=== PATIENT | female | born 1985 ===

== ENCOUNTER 2017-12-01 02:00 | Emergency (ER) | payer MEDICAID ==
[~2017-12-01] VITALS: Ht 152.4 cm; Wt 65.0 kg
[2017-12-01 02:14] VITALS: BP 118/82
== END 2017-12-01 02:52 | disposition left against medical advice (07) ==
LOC: ED 02:46
DX: M25.531 Pain in right wrist (principal); Z53.21 Procedure and treatment not carried out due to patient leaving prior to being seen by health care provider